=== PATIENT | female | born 2000 | race African-American/Black ===

== ENCOUNTER 2022-11-04 15:51 | Outpatient (CLI) | payer OTHER, SELFPAY ==
[2022-11-04 19:45] VITALS: BMI 22.5
== END 2022-11-04 19:47 | disposition home or self-care (01) ==
PROVIDERS: PCP Family Medicine; Visit Provider Nurse Practitioner Family
DX: Z11.1 Encounter for screening for respiratory tuberculosis (principal)
CPT/HCPCS: 86580

== ENCOUNTER 2022-11-14 15:03 | Emergency (ER) | payer OTHER, SELFPAY ==
[2022-11-14 15:25] VITALS: BMI 22.8
[2022-11-14 15:31] VITALS: BP 0/0; PULSE 0; RESP 20; TEMP -17.7; TEMP 0; O2SAT 98; BMI 22.8
== END 2022-11-14 15:31 | disposition home or self-care (01) ==
LOC: UTC 15:06
PROVIDERS: Emergency Provider Nurse Practitioner; PCP Family Medicine
DX: Z11.1 Encounter for screening for respiratory tuberculosis (principal)
CPT/HCPCS: 86580

== ENCOUNTER 2024-01-11 21:33 | Outpatient (CLI) | payer OTHER, SELFPAY ==
[2024-01-11 21:40] VITALS: BMI 28.3
[2024-01-11 21:47] LABS: Microscopic, Urine URINE MICROSCOPIC (MICROSCOPIC)
[2024-01-11 21:48] VITALS: BP 150/72; PULSE 99; RESP 17; TEMP 37; O2SAT 100; BMI 27.4
[2024-01-11 21:49] LABS: Appearance,Urine CLEAR (Clear); Bilirubin,Urine Negative (Negative); Blood, Urine Negative (Negative); Color,Urine YELLOW (Yellow); Glucose,Urine (UA) Negative (Negative); Ketones,Urine Negative (Negative); Leukocyte Esterase,Urine Negative (Negative); Nitrate,Urine Negative (Negative); Protein,Urine Negative (Negative); Specific Gravity, Urine >= 1.030 (1.005-1.030)
[2024-01-11 21:52] VITALS: BP 135/79
[2024-01-11 22:00] LABS: Amphetamine/Metha Screen,Urine Negative ng/ml (<1000); Barbiturates Screen,Urine Negative ng/ml (<200)
[2024-01-11 22:01] LABS: Benzodiazepines Screen,Urine Negative ng/ml (<200)
[2024-01-11 22:02] LABS: Cannabinoid Screen,Urine Negative ng/ml (<50); Cocaine Screen,Urine Negative ng/ml (<300)
[2024-01-11 22:03] LABS: Methadone Screen,Urine Negative ng/ml (<300)
[2024-01-11 22:04] LABS: Opiate Screen,Urine Negative ng/ml (<300); Phencyclidine Screen,Urine Negative ng/ml (<25)
[2024-01-11 22:14] LABS: Mucus,Urine Trace /lpf; WBC,Urine Occasional #/hpf (0-3)
== END 2024-01-11 22:33 | disposition home or self-care (01) ==
LOC: OBOUT 21:35 → OB 21:37
PROVIDERS: PCP Internal Medicine Medical Oncology; Visit Provider Obstetrics & Gynecology
DX: O26.893 Other specified pregnancy related conditions, third trimester (principal); Z3A.28 28 weeks gestation of pregnancy; R60.0 Localized edema
CPT/HCPCS: 80307; 81001; G0463

== ENCOUNTER 2024-03-24 18:44 | Emergency (ER) | payer OTHER, SELFPAY ==
[2024-03-24 18:54] VITALS: BP 141/84; PULSE 108; RESP 20; TEMP 36.9; O2SAT 97; BMI 32.3
--- NOTE | 2024-03-24 19:03 | ED_ITS ---
Discharge Plan Disposition Patient Disposition: Home, Self-Care Prescriptions Prescriptions: New amoxicillin-pot clavulanate 875-125 mg tablet 1 tab PO BID Qty: 14 0RF No Action norethindrone ac-eth estradiol [10/08 (21)] 1-20 mg-mcg tablet 1 tab PO DAILY Qty: 21 11RF Referrals Follow up/Referrals: Andrea Glez MD [Primary Care Provider] - See instructions Activity Restrictions/Add. Instructions Additional Instructions/Restrictions: At this time it was felt you are safe to be discharged home. If new or worsening symptoms please do not hesitate to return the emergency department. Clinical Impressions Clinical Impression: Abscess of vulva Instructions Patient Instructions: DI for Skin Abscess Discharge ED Provider: Zane Knowles General Adult HPI General Chief complaint: Skin/Abscess/Foreign Body Stated complaint: ? ingrown hair groin area right side Time Seen by Provider: 03/24/24 18:51 Mode of Arrival: Ambulatory Source of Information: Patient Limitations: No Limitations Description of Symptoms (Recalled from ER Triage Doc. by RN): pt to ed c/o right sided pelvic boil. pt states she first noticed it x3 days ago and it has increasingly started to grow and become more painful. pt reports to being 39w . History of Present Illness HPI narrative: Patient is a 23-year-old female who is 39 weeks pending vaginal delivery induction within the next [address] [facility] who presents emergency department for evaluation of vulvar swelling. She has had ingrown hairs in the past that have resolved with antibiotic administration, over the last few days she has had worsening swelling over her right lateral vulva that is precluding her from laying down or walking without significant pain. Due to this she presents here for continued evaluation. No vaginal bleeding. No other acute complaints at this time. Related Data Previous Rx's Medication Instructions Recorded norethindrone acetate 1 mg-ethinyl 1 tab PO DAILY #21 tabs 10/13/21 estradiol 20 mcg tablet () amoxicillin 875 mg-potassium 1 tab PO BID abscess #14 tabs 03/24/24 clavulanate 125 mg tablet Allergies Allergy/AdvReac Type Severity Reaction Status Date / Time No Known Allergies Allergy Verified 11/14/22 15:50 PFSH [facility] Disclaimer: The information contained in this section may have been updated after the patient was seen, as this information can be updated by other users. Social History Smoking Status: Never smoker second hand exposure: No alcohol intake: never substance use type: denies use current occupational status: employed Travel in the last 8 weeks: None housing: house ROS Obtained: Yes Systems reviewed as appropriate & no additional complaints except as documented Physical Exam General General appearance: alert and in no apparent distress Head Head exam: atraumatic and normocephalic Eye Eye exam: Present PERRL ENT ENT exam: Present mucous membranes moist Neck Neck exam: Present normal inspection Chest Chest inspection: Present normal inspection and symmetric chest wall rise Respiratory Respiratory exam: Absent respiratory distress Cardiovascular Cardiovascular exam: Present normal rhythm and tachycardia Abdominal Exam Abdominal exam: Present soft and distention (Gravid); Absent tenderness External exam: Present other ([employer] Person[employer] present, there is a 1.5 cm circumscribed tender area of fluctuance over the right lateral vulva. No vaginal bleeding.) Extremities Exam Extremities exam: Present normal inspection Neurological Exam Neurological exam: Present alert Psychiatric Psychiatric exam: Present normal affect Skin Skin exam: Present warm and dry Medical Decision Making Christian Inquiry Pt receiving controlled substance: No Vital Signs: 03/24/24 18:54 Temperature 98.5 F Temperature Source Oral Pulse Rate [Left Radial] 108 H Respiratory Rate 20 Blood Pressure [Right Arm] 141/84 H Blood Pressure Mean [Right Arm] 103 02 Sat by Pulse Oximetry 97 Oxygen Delivery Method Room Air Orders (Tests/Meds): ED MEDICATIONS Discontinued Medications Generic Name Dose Route Start Last Admin Trade Name Freq PRN Reason Stop Dose Admin Amoxicillin/Clavulanate Potassium 1 each 03/24/24 19:08 03/24/24 19:47 Amoxicillin/Clavulanate Potassium 875/125mg Tablet PO 03/24/24 19:09 1 each ONCE ONE Administration Epinephrine HCl 1 mg 03/24/24 19:05 03/24/24 19:48 Epinephrine 1 Mg/Ml Ampul TP 03/24/24 19:06 1 mg ONCE ONE Administration Lidocaine HCl 1 ml 03/24/24 19:05 03/24/24 19:48 Lidocaine 2% Urojet 10ml TP 03/24/24 19:06 1 ml ONCE ONE Administration Medical Decision Narrative: In summary patient is a 23-year-old female with past medical history described above who presents emergency department for evaluation of vulvar abscess in the setting of . Patient is hemodynamically stable upon arrival. Patient undergo incision and drainage at bedside. Topical lidocaine was administered prior to incision and drainage and it will be left to drain until she follows up for induction. Out of an abundance of caution patient will be discharged with a course of antibiotics with Augmentin and was given return precautions. Procedure: Procedure performed was incision and drainage. Procedure performed by Zane Knowles. Topical lidocaine was administered with partial anesthesia. Incision made with 11 blade. 4 cc of hemopurulent material expressed. Patient tolerated the procedure well. Wound will be left to drain. There were no immediate complications. Critical Care Critical Care Time Critical Care Time: No
--- NOTE | 2024-03-24 19:04 | PC.NURSE ---
speaking to OB ground operations crew member for consult
[2024-03-24] MEDS: AMOXICILLIN/CLAVULANATE POTASSIUM 875/125MG TABLET 1 EACH PO (19:47)
[2024-03-24] MEDS: LIDOCAINE 2% UROJET 10ML TP (19:48)
[2024-03-24] MEDS: EPINEPHrine 1 MG/ML AMPUL TP (19:48)
--- NOTE | 2024-03-24 19:54 | PC.NURSE ---
Lidocaine applied at 1950
[2024-03-24 20:45] VITALS: BP 110/78; PULSE 74; RESP 18; TEMP 36.8; O2SAT 98
== END 2024-03-24 20:48 | disposition home or self-care (01) ==
PROVIDERS: Emergency Provider Emergency Medicine; PCP Internal Medicine Medical Oncology
DX: O26.893 Other specified pregnancy related conditions, third trimester (principal); N76.4 Abscess of vulva; Z3A.39 39 weeks gestation of pregnancy
CPT/HCPCS: 56405; 99283

== ENCOUNTER 2025-01-23 13:26 | Outpatient (CLI) | payer OTHER, SELFPAY ==
[2025-01-23 14:11] LABS: Basophils % 0.3 % (0.1-2.0); Eosinophils # 0.1 Kmm3 (0.0-0.4); Eosinophils % 1.7 % (0.1-12.0); Hematocrit 37.7 % (37.0-47.0); Hemoglobin 11.8 g/dL (12.2-16.2); Immature Granulocytes # 0.03 10^3uL; Immature Granulocytes % 0.5 %; Lymphocytes # 2.5 K/mm3 (0.7-4.5); Lymphocytes % 39.9 % (10-50); Mean Corpuscular HGB Conc 31.3 g/dL (31.8-35.4); Mean Corpuscular Volume 86.3 fl (81-99); Mean Platelet Volume 12.2 fl (7.4-10.4); Monocytes # 0.4 K/mm3 (0.1-1.0); Monocytes % 5.8 % (1.7-9.3); Neutrophils # 3.3 K/mm3 (1.8-7.8); Neutrophils % 51.8 % (37.0-80.0); Nucleated Red Blood Cells # 0 10^3/uL; Nucleated Red Blood Cells % 0 %; Platelet Count 279 K/mm3 (142-424); Red Blood Count 4.37 M/mm3 (4.20-5.40); Red Cell Distribution Width 13.1 % (11.5-17.5); Red Cell Distribution Width-SD 41.1 fL; White Blood Count 6.3 K/mm3 (4.8-10.8)
[2025-01-23 14:48] LABS: Alanine Aminotransferase 20 U/L (12-78); Albumin Level 4.6 g/dl (3.5-5.0); Albumin/Globulin Ratio 1.5 (1.1-1.8); Alkaline Phosphatase 70 U/L (38-126); Anion Gap 8.5 mEq/L (5-15); Aspartate Amino Transferase 22 U/L (14-36); Bilirubin,Total 0.4 mg/dl (0.2-1.3); Blood Urea Nitrogen 14 mg/dl (7-17); Calcium 9.5 mg/dl (8.4-10.2); Carbon Dioxide 28 mmol/L (22.0-30.0); Chloride 107 mmol/L (98-107); Estimated Glomerular Filt Rate 104 ml/min (>60); GFR (African American) 125 ML/MIN (>60); Glucose 81 mg/dl (74-100); Potassium 4.5 mmoL/L (3.5-5.1); Sodium 139 mmol/L (136-145); Total Protein,Serum 7.6 g/dl (6.3-8.2)
[2025-01-23 15:04] LABS: Free T4 (Free Thyroxine) 1.23 ng/dl (0.78-2.19)
[2025-01-23 15:19] LABS: Thyroid Stimulating Hormone 0.64 uIU/mL (0.465-4.68)
[2025-01-23 16:48] LABS: Iron 75 ug/dL (37-170)
[2025-01-23 16:57] LABS: Total Iron Binding Capacity 416 ug/dL (265-497)
[2025-01-23 17:25] LABS: Ferritin 11.3 ng/ml (6.24-137)
[2025-01-23 19:24] LABS: Vitamin B12 808 pg/mL (239-931)
== END 2025-01-23 23:59 | disposition home or self-care (01) ==
LOC: LAB 13:27
PROVIDERS: PCP Internal Medicine Adolescent Medicine; Visit Provider Physician Assistant
DX: R79.89 Other specified abnormal findings of blood chemistry (principal); R53.83 Other fatigue
CPT/HCPCS: 36415; 80053; 82607; 82728; 82746; 83540; 83550; 84439; 84443; 85025